=== PATIENT | female | born 1985 | race Asian ===

== ENCOUNTER 2017-05-25 01:44 | Emergency (ER) | payer OTHER ==
[2017-05-25] MEDS ORDERED: ADENOSINE 6 MG/2 ML VIAL IVPUSH ONE ×3 (01:56→02:03)
[2017-05-25 01:58] VITALS: TEMP 98.6; BMI 26.1
[2017-05-25] MEDS ORDERED: SODIUM CHLORIDE 0.9% 1000 ML INFUS.BAG IV ONE (02:09)
--- NOTE | 2017-05-25 02:09 | PDOC ---
Attending Attestation - Resident Resident Name: Johnson Perkins
[2017-05-25 02:18] LABS: BASO % 0.2 % (0-2.0); HEMATOCRIT 33.8 % (32.4-45.2); HEMOGLOBIN 11.4 GM/dL (10.7-15.3); LYMPH % 29.9 % (8-40); MCH 28.6 pg (25.7-33.7); MCHC 33.6 g/dl (32.0-36.0); MEAN CELL VOLUME 85.2 fl (80-96); MEAN PLT VOLUME 8.3 fl (7.5-11.1); NEUT % 59.9 % (42.8-82.8); PLATELET COUNT 302 K/MM3 (134-434); RBC 3.97 M/mm3 (3.60-5.2); RDW 14.1 % (11.6-15.6); WHITE BLOOD COUNT 13.9 K/mm3 (4.0-10.0)
[2017-05-25 02:35] LABS: INR 0.94 (0.82-1.09); PROTHROMBIN TIME (PATIENT) 10.6 SEC (9.98-11.88)
[2017-05-25 02:46] LABS: ALBUMIN 2.9 g/dl (3.4-5.0); ANION GAP 9 (8-16); BILIRUBIN,TOTAL 0.3 mg/dL (0.2-1.0); BLOOD UREA NITROGEN 10 mg/dL (7-18); CALCIUM 8.4 mg/dL (8.5-10.1); CHLORIDE 106 mmol/L (98-107); CO2 23 mmol/L (21-32); CREATININE 0.6 mg/dL (0.55-1.02); GLUCOSE,RANDOM 125 mg/dL (74-106); POTASSIUM 3.8 mmol/L (3.5-5.1); SGOT/AST 11 U/L (15-37); SGPT/ALT 17 U/L (12-78); SODIUM 138 mmol/L (136-145); TOT PROT 6.9 g/dl (6.4-8.2)
--- NOTE | 2017-05-25 02:46 | PDOC ---
History of Present Illness - General Chief Complaint: Irregular Heart Beat Stated Complaint: FAST HEART RATE Time Seen by Provider: 05/25/17 01:51 History Source: Patient Exam Limitations: No Limitations - History of Present Illness Initial Comments: 05/25/17 02:43 The patient is a 31F at 27 weeks who presents with a fast heart rate. The patient states that she was trying to lay down to sleep and felt her heart racing. She states that this happened in her previous and it went away after 15 minutes. She has never been seen in a hospital for this. She denies any hx of blood clots during this or in her life. She has no symptoms other than palpitations. She denies CP, LOC, SOB, fevers, chills, nausea, and vomiting. Past History - Past Medical History Allergies/Adverse Reactions: Allergies Allergy/AdvReac Type Severity Reaction Status Date / Time No Known Allergies Allergy Verified 05/25/17 01:56 Home Medications: Ambulatory Orders Cyclobenzaprine HCl [Flexeril -] 10 mg PO HS #7 tablet 03/06/14 Ibuprofen [Motrin -] 600 mg PO TID #21 tablet 03/06/14 Oxycodone HCl/Acetaminophen [Percocet 5-325 mg Tablet -] 1 - 2 tab PO Q6H #14 tablet 03/06/14 COPD: No - Immunization History Immunization Up to Date: Yes - Suicide/Smoking/Psychosocial Hx Smoking History: Never smoked Have you smoked in the past 12 months: No Number of Cigarettes Smoked Daily: 0 Cigars Per Day: 0 Information on smoking cessation initiated: No Hx Alcohol Use: No Drug/Substance Use Hx: No Substance Use Type: None Review of Systems - Review of Systems Able to Perform ROS?: Yes Comments:: 05/25/17 02:44 GENERAL/CONSTITUTIONAL: No fever or chills. No weakness. HEAD, EYES, EARS, NOSE AND THROAT: No change in vision. No ear pain or discharge. No sore throat. CARDIOVASCULAR: Positive for palpitations. No chest pain or lightheadedness. RESPIRATORY: No cough, wheezing, shortness of breath, or hemoptysis. GASTROINTESTINAL: No nausea, vomiting, diarrhea, constipation, or abdominal pain. GENITOURINARY: No dysuria, frequency, hematuria, or change in urination. MUSCULOSKELETAL: No joint or muscle swelling or pain. No neck or back pain. SKIN: No rash or lesions. NEUROLOGIC: No headache, numbness, tingling, weakness, loss of consciousness, or change in strength/sensation. ENDOCRINE: No increased thirst. No abnormal weight change. HEMATOLOGIC/LYMPHATIC: No anemia, easy bleeding, or history of blood clots. ALLERGIC/IMMUNOLOGIC: No hives or skin allergy. Is the patient limited Hebrew proficient: No *Physical Exam - Vital Signs Last Vital Signs Temp Pulse Resp BP Pulse Ox 98.6 F 135 H 19 130/78 98 05/25/17 01:44 05/25/17 02:02 05/25/17 02:02 05/25/17 02:02 05/25/17 02:02 - Physical Exam Comments: 05/25/17 02:45 GENERAL: Well developed, well nourished. Awake and alert. No acute distress. HEENT: Normocephalic, atraumatic. Hearing grossly normal. Moist mucous membranes. PERRLA, EOMI. No conjunctival pallor. Sclera are non-icteric. NECK: Supple. Full ROM. No JVD. CARDIOVASCULAR: Tachycardic with regular rhythm. No murmurs, rubs, or gallops. PULMONARY: No evidence of respiratory distress. Lungs clear to auscultation bilaterally. No wheezing, rales or rhonchi. ABDOMINAL: Soft. Gravid abdomen. Non-tender. Non-distended. No rebound or guarding. MUSCULOSKELETAL: Normal range of motion at all joints. No bony deformities or tenderness. EXTREMITIES: No cyanosis. No clubbing. No edema. No calf tenderness. SKIN: Warm and dry. Normal capillary refill. No rashes. No jaundice. NEUROLOGICAL: Alert, awake, appropriate. Cranial nerves 2-12 intact. Normal speech. Gait is normal without ataxia. PSYCHIATRIC: Cooperative. Good eye contact. Appropriate mood and affect. Heart Score/ECG Review #1 General ECG Interpretation: Sinus Rhythm, Normal Rate, Normal Intervals, No acute ischemic changes Compared to previous ECG there are: No significant change (Tachycardic to 130's) 05/25/17 02:46 NSR Tachy to 134 Normal intervals No ischemic changes ED Treatment Course - LABORATORY CBC & Chemistry Diagram: 05/25/17 02:11 05/25/17 02:11 - ADDITIONAL ORDERS Additional order review: Laboratory Results 05/25/17 02:11 PT with INR 10.60 INR 0.94 PTT (Actin FS) 21.0 L 05/25/17 02:11 RBC 3.97 MCV 85.2 MCHC 33.6 RDW 14.1 MPV 8.3 Neutrophils % 59.9 Lymphocytes % 29.9 Monocytes % 9.0 Eosinophils % 1.0 Basophils % 0.2 - Medications Given in the ED: ED Medications Discontinued Medications Generic Name Dose Route Start Last Admin Trade Name James PRN Reason Stop Dose Admin Adenosine 6 mg 05/25/17 01:56 05/25/17 01:58 Adenocard - IVPUSH 05/25/17 01:57 6 mg ONCE ONE Administration Sodium Chloride 1,000 ml 05/25/17 02:09 05/25/17 02:15 Normal Saline - IV 05/25/17 02:10 1,000 ml ONCE ONE Administration Medical Decision Making - Medical Decision Making 05/25/17 02:48 The patient is a 31F with no PMH who is at 27 weeks and is presenting in SVT. Adenosine revealed sinus tachycardia. Will give fluids. Pt is afebrile. Will need OB monitoring after HR is stabilized in ER. 05/25/17 05:27 Pt will be transferred to [facility] for further evaluation. *DC/Admit/Observation/Transfer Diagnosis at time of Disposition: transferred - Discharge Dispostion Disposition: TRANSFER ACUTE CARE/OTHER HOSP - Referrals Referrals: Poly Andrews MD [Primary Care Provider] - - Patient Instructions - Post Discharge Activity Forms/Work/School Notes: Parent(s) Back to Work Note - Transfer to Acute Care Facility Receiving Facility: [facility]. Accepting Physician:: Dr. Enamorado
[2017-05-25 02:48] LABS: ALK PHOS 99 U/L (45-117)
[2017-05-25] MEDS ORDERED: SODIUM CHLORIDE 500 ML IV STA (03:38)
[2017-05-25 05:19] VITALS: BP 140/86; PULSE 115
--- NOTE | 2017-05-25 10:59 | EKG ---
Test Reason : Blood Pressure : / mmHG Vent. Rate : 193 BPM Atrial Rate : 227 BPM P-R Int : 000 ms QRS Dur : 068 ms QT Int : 228 ms P-R-T Axes : 000 056 -14 degrees QTc Int : 408 ms SUPRAVENTRICULAR TACHYCARDIA NONSPECIFIC ST ABNORMALITY ABNORMAL QRS-T ANGLE, CONSIDER PRIMARY T WAVE ABNORMALITY ABNORMAL ECG WHEN COMPARED WITH ECG OF 06-MAR-2014 01:29, VENT. RATE HAS INCREASED BY [address] NOW DEPRESSED IN ANTEROLATERAL LEADS Confirmed by MESERET FU MD ([id number]) on 05/25/2017 10:58:55 AM Referred By: Confirmed By:MESERET FU MD
== END 2017-05-25 05:24 | disposition short-term general hospital (02) ==
LOC: JER 01:44
PROC: 3E0337Z Introduction of Electrolytic and Water Balance Substance into Peripheral Vein, Percutaneous Approach (ICD-10-PCS; principal; 2017-05-25)
PROC: 3E033GC Introduction of Other Therapeutic Substance into Peripheral Vein, Percutaneous Approach (ICD-10-PCS; 2017-05-25)
DX: O99.412 Diseases of the circulatory system complicating pregnancy, second trimester (principal); I47.1 Supraventricular tachycardia; Z3A.27 27 weeks gestation of pregnancy
CPT/HCPCS: 36415; 80053; 82550; 84439; 84443; 84484; 85025; 85610; 85730; 87804; 93005; 93010; 99285-25; J7030

== ENCOUNTER 2017-09-04 07:30 | Inpatient (IN) | payer OTHER ==
[2017-09-04] MEDS ORDERED: CITRIC ACID/SODIUM CITRATE 30 ML UNIT-DOSE CUP PO ONE (08:00)
[2017-09-04 08:44] VITALS: BMI 29.7
--- NOTE | 2017-09-04 09:27 | HP ---
Past Medical History - Admission History Source: Patient - Past Medical History ...: 2 ...Para: 1 ...Term: 1 ...: 0 ...Spon : 0 ...Induced : 0 ...Multiple Gestation: 0 ...LMP: 12/02/17 ...EDC by Sono: 09/08/17 - Past Surgical History Past Surgical History: Yes: None Hx Myomectomy: No Hx Transabdominal Cerclage: No - Smoking History Smoking history: Never smoked Have you smoked in the past 12 months: No Aproximately how many cigarettes per day: 0 - Alcohol/Substance Use Hx Alcohol Use: No Home Medications - Allergies Allergies/Adverse Reactions: Allergies Allergy/AdvReac Type Severity Reaction Status Date / Time No Known Allergies Allergy Verified 07/31/17 01:27 - Home Medications Home Medications: Ambulatory Orders Vitamins (Sjr) - 1 tab PO DAILY 07/31/17 Review of Systems - Review of Systems Constitutional: reports: No Symptoms Eyes: reports: No Symptoms HENT: reports: No Symptoms Neck: reports: No Symptoms Cardiovascular: reports: No Symptoms Respiratory: reports: No Symptoms Gastrointestinal: reports: No Symptoms Genitourinary: reports: No Symptoms Breasts: reports: No Symptoms Reported Musculoskeletal: reports: No Symptoms Integumentary: reports: No Symptoms Neurological: reports: No Symptoms Endocrine: reports: No Symptoms Hematology/Lymphatic: reports: No Symptoms Psychiatric: reports: No Symptoms Physical Exam - Maternity Vital Signs: Vital Signs Temperature 98.2 F 09/04/17 07:30 Pulse Rate 94 H 09/04/17 07:30 Respiratory Rate 18 09/04/17 07:30 Blood Pressure 117/78 09/04/17 07:30 O2 Sat by Pulse Oximetry (%) Constitutional: Yes: Well Nourished, No Distress HENT: Yes: WNL Neck: Yes: WNL Cardiovascular: Yes: WNL, Regular Rate and Rhythm Lungs: Clear to auscultation Breast(s): Yes: WNL - Abdominal Exam/OB Fundal Height: 39 Number of Fetuses: Single Presentation: Breech Contractions: No Monitor Mode: External Heart Rate Location: [facility] Category: I Decelerations: None - Vaginal Exam/OB Presentation: Benjamin Breech - Physical Exam Edema: No Psychiatric: Yes: WNL, Alert, Oriented Problem List - Problems (1) Breech presentation Code(s): O32.1XX0 - MATERNAL CARE FOR BREECH PRESENTATION, UNSP Assessment/Plan IUP at 39 week Breech presentation
[2017-09-04] MEDS ORDERED: ELECTROLYTE-148 SOLN 500 ML IV ONE (09:30)
[2017-09-04] MEDS ORDERED: ELECTROLYTE-148 SOLN 1,000 ML IV SCH ×2 (09:30→10:30)
[2017-09-04] MEDS ORDERED: OXYTOCIN 20 UNITS in 0.9% NS 20 UNIT/1,000 ML INFUS.BAG IV ONE ×2 (09:36→13:04)
[2017-09-04] MEDS ORDERED: ePHEDrine SULFATE 50 MG/1 ML AMPULE ONE (09:45)
[2017-09-04] MEDS ORDERED: morphine SULFATE/Preservative Free 0.5 MG/ML (1cc Syringe) ONE (09:45)
[2017-09-04] MEDS ORDERED: PHENYLEPHRINE HCL 10 MG/1 ML SINGLE DOSE VIAL ONE (09:48)
[2017-09-04] MEDS ORDERED: BUPIVACAINE 0.75% IN DEXTROSE/PF 2ML AMPULE NR ONE (09:51)
[2017-09-04] MEDS ORDERED: ceFAZolin SODIUM 1 GM VIAL ONE (10:03)
--- NOTE | 2017-09-04 10:55 | OP ---
Operative Note - Note: Operative Date: 09/04/17 Pre-Operative Diagnosis: Breech presentation. iup @ 39 week Operation: Low transverse Section Findings: Live male infant Post-Operative Diagnosis: Same as Pre-op Surgeon: Farida Morales Record Label Intern: Zachary Spence Anesthesia: Spinal Estimated Blood Loss (mls): 600 Operative Report Dictated: Yes
[2017-09-04 10:57] LABS: ARTERIAL BLOOD GAS BASE EXCESS -0.5 meq/l (-2-2); ARTERIAL BLOOD GAS PO2 19.7 mmHg (80-100); ARTERIAL BLOOD GAS pH 7.26 (7.35-7.45)
[2017-09-04] MEDS ORDERED: ONDANSETRON 4 MG/2 ML VIAL IVPUSH PRN (11:01)
[2017-09-04 11:03] LABS: VENOUS PC02 50.9 mmHg (38-52); VENOUS PH 7.35 (7.32-7.42); VENOUS PO2 23.2 mmHg (28-48)
--- NOTE | 2017-09-04 12:59 | OP ---
DATE OF OPERATION: 09/04/2017 PREOPERATIVE DIAGNOSIS: Breech presentation, intrauterine at 39 weeks. OPERATION: Primary section. POSTOPERATIVE DIAGNOSIS: Live male . SURGEON: Farida Morales MD ENGINEERING LAB TECHNICIAN: BEHZAD Gaxiola MD unavailable. ANESTHESIA: Spinal. ANESTHESIOLOGIST: Karen Sena DO FINDINGS: Live male delivered in bhupendra breech presentation. DESCRIPTION OF PROCEDURE: The patient was taken to the operating room and placed in supine position, prepped and draped in the usual sterile fashion. Time-out was performed in accordance with hospital regulation. Pfannenstiel skin incision was made with a scalp. Cautery was then used to go through the layers of the abdominal wall to the level of the fascia. Fascia was cut in the midline, and cautery was then used to open the fascia in a smiling fashion. Kochers were then used to bluntly and sharply dissect the rectus muscles off the fascia. Muscles were split in the midline. Peritoneal cavity was then entered and carried upward and downward. Bladder retractor was then placed. Scalpel was then used to make a low transverse uterine incision. Incision was carried upward using bandage scissors. A live male was delivered in bhupendra breech presentation. Bhupendra breech extraction was done. Shoulders were delivered without difficulty, and head was delivered without difficulty. Delayed cord clamping was done. Cord was clamped and cut. Cord blood obtained. Cord pH obtained. was handed to the guitar instructor. Placenta was then manually extracted from the uterus. Uterus was exteriorized and cleaned with clean laparotomy pads. Uterine incision was closed using 0 Biosyn suture 1st layer continuous and locking, 2nd layer imbricating the 1st layer. Hemostasis was achieved. [id number] sutures were then used to tie off all bleeding. Uterus interiorized. Abdominal cavity cleaned with clean laparotomy pads. Tubes and ovaries noted to be normal. Abdominal sweep done. Peritoneum closed using 0 Biosyn suture. Fascia was then closed using 0 Vicryl suture in 2 parts. The skin was then closed using 3-0 Vicryl in subcuticular fashion. The wound was washed and dressed. Estimated blood loss was 600 mL. Lina TERRY/[id number]
[2017-09-04] MEDS ORDERED: DIPHTH,PERTUSS(ACELL),TET 0.5 ML DISP.SYRIN IM ONE (22:00)
[2017-09-05] MEDS ORDERED: oxyCODONE HCL 5 MG TABLET PO PRN ×2 (09:29)
[2017-09-05] MEDS ORDERED: METHYLERGONOVINE MALEATE 0.2 MG/1 ML AMP IM PRN (09:29)
[2017-09-05] MEDS ORDERED: DIPHTH,PERTUSS(ACELL),TET 0.5 ML DISP.SYRIN IM ONE (10:00)
[2017-09-05] MEDS: ACETAMINOPHEN 325 MG TABLET (FP) PO PRN ×2 (10:05→21:24)
[2017-09-05] MEDS: SIMETHICONE 80 MG TAB.CHEW (FP) PO PRN ×2 (10:05→21:23)
[2017-09-05] MEDS: IBUPROFEN 600 MG TABLET (FP) PO PRN ×2 (10:07→21:23)
--- NOTE | 2017-09-05 10:13 | PN ---
Progress Note (SOAP) - Subjective Chief Complaint: pT doing well - Current Medications Current Medications: Active Medications Acetaminophen (Tylenol -) 650 mg PO Q4H PRN PRN Reason: FEVER Last Admin: 09/05/17 10:05 Dose: 650 mg Bisacodyl (Dulcolax Suppository -) 10 mg RC PRN PRN PRN Reason: CONSTIPATION Diphenhydramine HCl (Benadryl Injection -) 25 mg IVPUSH Q4H PRN PRN Reason: Pruritis Parenteral Electrolytes (Plasma-Lyte 148 -) 1,000 mls @ 125 mls/hr IV ASDIR TOÑO Ibuprofen (Motrin -) 600 mg PO Q4H PRN PRN Reason: PAIN LEVEL 1 - 3 Last Admin: 09/05/17 10:07 Dose: 600 mg Methylergonovine Maleate (Methergine Injection -) 0.2 mg IM Q4H PRN PRN Reason: Excessive Bleeding (L&D) Ondansetron HCl (Zofran Injection) 4 mg IVPUSH Q4H PRN PRN Reason: NAUSEA Oxycodone HCl (Roxicodone -) 5 mg PO Q4H PRN PRN Reason: PAIN LEVEL 4 - 6 Oxycodone HCl (Roxicodone -) 10 mg PO Q4H PRN PRN Reason: PAIN LEVEL 7 - 10 Simethicone (Mylicon -) 80 mg PO Q4H PRN PRN Reason: GAS Last Admin: 09/05/17 10:05 Dose: 80 mg - Objective Vital Signs: Vital Signs Temperature 98.0 F 09/05/17 05:00 Pulse Rate 99 H 09/05/17 05:00 Respiratory Rate 20 09/05/17 06:00 Blood Pressure 99/55 09/05/17 05:00 O2 Sat by Pulse Oximetry (%) 98 09/04/17 11:40 Constitutional: Yes: Well Nourished, No Distress Neck: Yes: WNL Cardiovascular: Yes: WNL Respiratory: Yes: WNL, Regular, CTA Bilaterally Gastrointestinal: Yes: WNL, Soft ....Post : Yes: Uterus firm, Uterus non-tender Breast(s): Yes: WNL Musculoskeletal: Yes: WNL Extremities: Yes: WNL Edema: No Wound/Incision: Yes: Clean/Dry, Well Approximated Neurological: Yes: WNL, Alert, Oriented Problem List - Problems (1) Breech presentation Code(s): O32.1XX0 - MATERNAL CARE FOR BREECH PRESENTATION, UNSP Assessment/Plan POD 1 for Breech presentation Stable
--- NOTE | 2017-09-05 14:40 | PN ---
Progress Note, Physician Chief Complaint: Pt ambulating and voiding, pain controlled, no anesthesia complaints. - Current Medication List Current Medications: Active Medications Acetaminophen (Tylenol -) 650 mg PO Q4H PRN PRN Reason: FEVER Last Admin: 09/05/17 10:05 Dose: 650 mg Bisacodyl (Dulcolax Suppository -) 10 mg RC PRN PRN PRN Reason: CONSTIPATION Diphenhydramine HCl (Benadryl Injection -) 25 mg IVPUSH Q4H PRN PRN Reason: Pruritis Parenteral Electrolytes (Plasma-Lyte 148 -) 1,000 mls @ 125 mls/hr IV ASDIR TOÑO Last Admin: 09/05/17 14:18 Dose: Not Given Ibuprofen (Motrin -) 600 mg PO Q4H PRN PRN Reason: PAIN LEVEL 1 - 3 Last Admin: 09/05/17 10:07 Dose: 600 mg Methylergonovine Maleate (Methergine Injection -) 0.2 mg IM Q4H PRN PRN Reason: Excessive Bleeding (L&D) Ondansetron HCl (Zofran Injection) 4 mg IVPUSH Q4H PRN PRN Reason: NAUSEA Oxycodone HCl (Roxicodone -) 5 mg PO Q4H PRN PRN Reason: PAIN LEVEL 4 - 6 Oxycodone HCl (Roxicodone -) 10 mg PO Q4H PRN PRN Reason: PAIN LEVEL 7 - 10 Simethicone (Mylicon -) 80 mg PO Q4H PRN PRN Reason: GAS Last Admin: 09/05/17 10:05 Dose: 80 mg - Objective Vital Signs: Vital Signs Temperature 97.9 F 09/05/17 09:00 Pulse Rate 95 H 09/05/17 09:00 Respiratory Rate 20 09/05/17 10:00 Blood Pressure 115/65 09/05/17 09:00 O2 Sat by Pulse Oximetry (%) 98 09/04/17 11:40 Constitutional: Yes: Well Nourished, No Distress, Calm Musculoskeletal: Yes: WNL Neurological: Yes: WNL, Alert, Oriented ...Motor Strength: WNL Assessment/Plan POD#1 s/p under spinal with duramorph. Doing well. D/C from anesthesia care.
[2017-09-06] MEDS: IBUPROFEN 600 MG TABLET (FP) PO PRN ×4 (03:52→21:06)
[2017-09-06] MEDS: ACETAMINOPHEN 325 MG TABLET (FP) PO PRN ×4 (03:53→21:06)
[2017-09-06] MEDS: SIMETHICONE 80 MG TAB.CHEW (FP) PO PRN ×3 (08:53→21:06)
[2017-09-06] MEDS ORDERED: BISACODYL 10 MG SUPP.RECT RC PRN (09:29)
[2017-09-06] MEDS: SENNOSIDES/DOCUSATE COMBO (SENNA PLUS) TABLET (UD) PO PRN (21:06)
--- NOTE | 2017-09-06 21:10 | PN ---
Post Progress Note - Subjective Subjective: Pt seen/evaluated. Pt without complaints. Tolerating diet, ambulating, voiding , passing flatus. Type of Delivery: Vital Signs: Vital Signs Temperature 98.0 F 09/06/17 09:00 Pulse Rate 90 09/06/17 09:00 Respiratory Rate 20 09/06/17 09:00 Blood Pressure 103/65 09/06/17 09:00 O2 Sat by Pulse Oximetry (%) 98 09/04/17 11:40 Uterus: Yes: Fundus Firm Incision: Yes: Sutures intact Abdomen/GI: Yes: Abdomen soft, Passing flatus, Tolerating PO. No: Abdominal Distention Lochia, amount: Small Extremities: Yes: Calves non-tender Perineum: Yes: Intact Activity: Ambulating Problem List - Problems (1) delivery delivered Code(s): O82 - ENCOUNTER FOR DELIVERY WITHOUT INDICATION Assessment/Plan 32 y/o POD#2 s/p delivery for breech presentation - AFVSS - CBC in a.m. - encourage ambulation - regular diet, PO pain meds - routine post care
[2017-09-07] MEDS: IBUPROFEN 600 MG TABLET (FP) PO PRN ×4 (02:30→20:56)
[2017-09-07] MEDS: ACETAMINOPHEN 325 MG TABLET (FP) PO PRN ×4 (02:30→20:55)
[2017-09-07] MEDS: SIMETHICONE 80 MG TAB.CHEW (FP) PO PRN ×4 (02:30→20:55)
--- NOTE | 2017-09-07 06:58 | PN ---
Post Progress Note - Subjective Subjective: Pt seen/evaluated, no complaints this a.m. Type of Delivery: Vital Signs: Vital Signs Temperature 98.3 F 09/06/17 21:00 Pulse Rate 83 09/06/17 21:00 Respiratory Rate 20 09/06/17 21:00 Blood Pressure 109/72 09/06/17 21:00 O2 Sat by Pulse Oximetry (%) 98 09/04/17 11:40 Uterus: Yes: Fundus Firm, Fundus below umbilicus Incision: Yes: Dressing dry and intact Abdomen/GI: Yes: Abdomen soft, Passing flatus, Tolerating PO. No: Tender Lochia, amount: Small Extremities: Yes: Calves non-tender Perineum: Yes: Intact Activity: Ambulating Problem List - Problems (1) delivery delivered Code(s): O82 - ENCOUNTER FOR DELIVERY WITHOUT INDICATION Assessment/Plan 32 y/o POD#3 s/p delivery for breech presentation - AFVSS - await CBC - pending - encourage ambulation - regular diet, PO pain meds - routine post care - plan for discharge tomorrow a.m
--- NOTE | 2017-09-07 07:23 | DS ---
Physical Exam-TAPE CUTTER Vital Signs: Vital Signs Temperature 98.3 F 09/06/17 21:00 Pulse Rate 83 09/06/17 21:00 Respiratory Rate 20 09/06/17 21:00 Blood Pressure 109/72 09/06/17 21:00 O2 Sat by Pulse Oximetry (%) 98 09/04/17 11:40 Constitutional: Yes: Well Nourished, No Distress, Calm Eyes: Yes: Conjunctiva Clear, EOM Intact HENT: Yes: Atraumatic, Normocephalic Neck: Yes: Supple, Trachea Midline, Tenderness Respiratory: Yes: Regular, CTA Bilaterally Gastrointestinal: Yes: Soft. No: Tenderness, Vomiting Musculoskeletal: Yes: WNL Edema: Yes Edema: LLE: Trace, RLE: Trace Wound/Incision: Yes: Clean/Dry, Well Approximated Neurological: Yes: Alert, Oriented Psychiatric: Yes: Alert, Oriented Delivery - Delivery Section: Low Flap Transverse Type of Anesthesia: Spinal Episiotomy/Laceration: None EBL (cc): 600 Delivery, Single - Stages of Labor Date of Delivery: 09/04/17 Time of Delivery: 10:17 Time Placenta Delivered: :19 Placenta: Yes: Manual Removal - Condition of Transmitter Supervisor/Spinning Operator Present: Yes Name: Prudence Leigh Gender: Male Weight: 10 lb 2 oz Position: SA Total Hours ROM (Hrs/Mins): 2min - 1 Minute Total Score: 8 5 Minutes Total Score: 9 - [place] Feeding Plan Initial Plan: Elected not to breastfeed exclusively throughout hospitalization Discharge Summary Reason For Visit: C/SECTION Current Active Problems Breech presentation (Acute) delivery delivered (Acute) Procedures: Principal: delivery Condition: Good - Instructions Diet, Activity, Other Instructions: Physical activity Resume your normal everyday activity as tolerated no heavy lifting or exercise until seen by your surgeon. You may walk unlimited indy of and climb stairs. You may resume driving the car when you feel safe and comfortable behind the wheel. No sexual activity as instructed. Wound care If you have a bandage, leave it on, and keep dry for 48-72 hours. After that time discard the outer bandage. If they are tapes on the skin under the out of bandage leave them in place. They will peel off in the next 7 to 10 days. Do Not Peel them off. You may shower the day after surgery. If there are tapes present on the skin, you may shower over them. Diet There are no dietary restrictions. Eat healthy, high-fiber foods. Drink 6 to 8 glasses of liquid each day. This will assist in keeping your bowels are regular. Pain management You may take Tylenol or acetaminophen or Ibuprofen (for example, Motrin, Advil etc.) from my pain prescription medication is ordered should be taken as prescribed for moderate to severe pain. Call MD for any of the following: Severe pain not relieved by medication Fever of 101 or higher Excessive bleeding or drainage on dressing Inability to urinate Referrals: Farida Morales MD [Staff Physician] - 1 Week Disposition: HOME - Home Medications Comprehensive Discharge Medication List: Ambulatory Orders Vitamins (Sjr) - 1 tab PO DAILY 07/31/17 Ibuprofen [Motrin -] 600 mg PO QID PRN #28 tablet 09/07/17
[2017-09-07 08:13] LABS: BASO % 0.2 % (0-2.0); EOS % 1.4 % (0-4.5); HEMATOCRIT 31.9 % (32.4-45.2); HEMOGLOBIN 10.9 GM/dL (10.7-15.3); LYMPH % 17.8 % (8-40); MCH 29.6 pg (25.7-33.7); MCHC 34.2 g/dl (32.0-36.0); MEAN CELL VOLUME 86.6 fl (80-96); MEAN PLT VOLUME 7.5 fl (7.5-11.1); MONO % 8.5 % (3.8-10.2); NEUT % 72.1 % (42.8-82.8); PLATELET COUNT 255 K/MM3 (134-434); RBC 3.68 M/mm3 (3.60-5.2); RDW 18.8 % (11.6-15.6); WHITE BLOOD COUNT 9.6 K/mm3 (4.0-10.0)
[2017-09-07] MEDS: SENNOSIDES/DOCUSATE COMBO (SENNA PLUS) TABLET (UD) PO PRN (20:55)
[2017-09-08] MEDS: ACETAMINOPHEN 325 MG TABLET (FP) PO PRN ×3 (08:43→22:12)
[2017-09-08] MEDS: SIMETHICONE 80 MG TAB.CHEW (FP) PO PRN ×3 (08:43→22:12)
[2017-09-08] MEDS: IBUPROFEN 600 MG TABLET (FP) PO PRN ×3 (08:44→22:12)
[2017-09-08 10:07] VITALS: BP 112/68; PULSE 82; TEMP 98.6
--- NOTE | 2017-09-08 15:56 | PN ---
Progress Note (SOAP) - Current Medications Current Medications: Active Medications Acetaminophen (Tylenol -) 650 mg PO Q4H PRN PRN Reason: FEVER Last Admin: 09/08/17 08:43 Dose: 650 mg Bisacodyl (Dulcolax Suppository -) 10 mg RC PRN PRN PRN Reason: CONSTIPATION Diphenhydramine HCl (Benadryl Injection -) 25 mg IVPUSH Q4H PRN PRN Reason: Pruritis Parenteral Electrolytes (Plasma-Lyte 148 -) 1,000 mls @ 125 mls/hr IV ASDIR TOÑO Last Admin: 09/05/17 14:18 Dose: Not Given Ibuprofen (Motrin -) 600 mg PO Q4H PRN PRN Reason: PAIN LEVEL 1 - 3 Last Admin: 09/08/17 08:44 Dose: 600 mg Methylergonovine Maleate (Methergine Injection -) 0.2 mg IM Q4H PRN PRN Reason: Excessive Bleeding (L&D) Ondansetron HCl (Zofran Injection) 4 mg IVPUSH Q4H PRN PRN Reason: NAUSEA Senna/Docusate Sodium (Pericolace -) 2 tablet PO HS PRN PRN Reason: CONSTIPATION Last Admin: 09/07/17 20:55 Dose: 2 tablet Simethicone (Mylicon -) 80 mg PO Q4H PRN PRN Reason: GAS Last Admin: 09/08/17 08:43 Dose: 80 mg - Objective Vital Signs: Vital Signs Temperature 98.6 F 09/08/17 10:00 Pulse Rate 82 09/08/17 10:00 Respiratory Rate 20 09/08/17 10:00 Blood Pressure 112/68 09/08/17 10:00 O2 Sat by Pulse Oximetry (%) 98 09/04/17 11:40 Constitutional: Yes: Well Nourished, No Distress Cardiovascular: Yes: WNL Gastrointestinal: Yes: WNL, Soft ....Post : Yes: Uterus firm, Uterus non-tender Breast(s): Yes: WNL Musculoskeletal: Yes: WNL Extremities: Yes: WNL Edema: No Integumentary: Yes: WNL Labs Lab Results: CBC, BMP 09/07/17 07:50 Problem List - Problems (1) Breech presentation Code(s): O32.1XX0 - MATERNAL CARE FOR BREECH PRESENTATION, UNSP Assessment/Plan POD 4 for Breech presentation Stable Plan DC home rto 1 week
--- NOTE | 2017-09-12 18:40 | PATH ---
Surgical Pathology Report Patient Name: PRIMO JOE Med. Rec. 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 Specimen(s) Received PLACENTA Clinical History GDM treated with Metaformin Rh-, RhoGAM given 06/14/17-breech presentation Primary Final Diagnosis PLACENTA: THIRD TRIMESTER PLACENTA WITH ONE FOCUS OF INTRAPARENCHYMAL HEMORRHAGE (1.2 CM IN GREATEST DIMENSION). TRIVASCULAR CORD. MEMBRANES WITH NO DIAGNOSTIC ABNORMALITIES. Electronically Signed Janeen Fontenot M.D. Gross Description The specimen is received fresh labeled placenta and is a 581 gram, 20.0 x 15.0 x 3.2 cm. placenta with attached membranes and umbilical cord. The attached membranes are osborn, translucent with focal opacities and insert marginally. The umbilical cord measures 9 cm. in length and averages 1.5 cm. in diameter. The cord inserts eccentrically, 2.5 cm. to the nearest margin. No true knots or strictures are identified. Cut surface of the umbilical cord reveals 3 vessels. The surface is francis-blue with minimal fibrin deposition and appropriate caliber vessels. The maternal surface is red-brown with focal defects. Sectioning reveals a 1.2 cm greatest dimension hemorrhagic intraparenchymal lesion. The remaining placental parenchyma is red-brown and spongy. Launch Steward sections are submitted in 4 cassettes as follows: 1-membrane roll and umbilical cord; 2-lesion; 3-4-full thickness sections of placenta. 09/08/2017 merged with [facility]/09/08/2017
== END 2017-09-08 23:24 | disposition home or self-care (01) | DRG 766 ==
LOC: JLDR 07:30 → J3W 13:09
PROVIDERS: ADMIT Obstetrics & Gynecology; ATTEND Obstetrics & Gynecology
PROC: 10D00Z1 Extraction of Products of Conception, Low, Open Approach (ICD-10-PCS; principal; 2017-09-04)
DX: O32.1XX0 Maternal care for breech presentation, not applicable or unspecified (principal); O36.63X0 Maternal care for excessive fetal growth, third trimester, not applicable or unspecified; Z3A.39 39 weeks gestation of pregnancy; Z37.0 Single live birth
CPT/HCPCS: 36415; 36600; 82803; 82962; 85025; 85461; 88307-TC; 90715